=== PATIENT | female | born 1950 | race Caucasian/White ===

== ENCOUNTER 2018-10-28 10:49 | Day surgery (SDC) | payer BC ==
--- NOTE | 2018-10-28 07:06 | History and Physical - [place] ---
CHIEF COMPLAINT/HISTORY OF CHIEF COMPLAINT: This patient presents with a history of an intractable lumbar radiculopathy. Due to the failure of therapy a spinal cord stimulator trial was conducted on 09/29/18. Due to the failure of all therapies and the success of the trial, the patient presents today for implantation of a permanent system. PAST MEDICAL HISTORY: Noncontributory. PAST SURGICAL HISTORY: Shoulder surgery, knee surgery, hysterectomy and tendon repair. MEDICATIONS ON ADMISSION: List to be provided. ALLERGIES: CODEINE, MORPHINE, AND DEMEROL. FAMILY/PSYCHOSOCIAL HISTORY: Social history - Caffeine. Family history - Diabetes, hypertension, and cancer. SYSTEMS REVIEW: The patient seems appropriate in no acute distress. The remainder of the systems review is positive for glasses, headaches, and degenerative arthritis. PHYSICAL EXAMINATION: Height is 4'8", weight is 200 pounds. No vital signs. HEENT: Within normal limits. LUNGS: Clear. HEART: Rapid and regular. ABDOMEN: Nontender. MUSCULOSKELETAL: Examination of the musculoskeletal system shows diffuse tenderness at the lumbar spine. Range of motion does produce pain into both legs across both the front and back surface. There appears to be some mild motor and sensory abnormalities into both legs. Ambulation - No assistive device utilized. NEUROLOGIC: Cranial nerves are intact. IMPRESSION: LUMBAR RADICULOPATHY, ICD-10 CODE M54.16 AND M54.17. PLAN: The patient is here for implantation of a permanent spinal cord stimulator after the successful trial and the failure of all other therapies. The procedure will be considered outpatient, although an overnight stay will be evaluated. The potential risks, side effects and complications have all been reviewed and discussed. JOB NUMBER: [id number] [facility]
[~2018-10-28 10:49] MED LIST: ACETAMINOPHEN 1,000 MG/100 ML BTL IVPB ONE; CEFAZOLIN 1G VIAL IVP ONE; CEFAZOLIN 2 Gram 2 GM/50 ML BAG IVPB ONE; FAMOTIDINE 20MG TABLET PO ONE; METOCLOPRAMIDE 10 MG TABLET PO ONE; SCOPOLAMINE 1 PATCH TDSY TD ONE; WATER STERILE FOR INJECTION 20 ML VIAL MC ONE
[2018-10-28] MEDS ORDERED: PROPOFOL 10 MG/ML VIAL IV ONE (10:50)
[2018-10-28] MEDS ORDERED: MIDAZOLAM HCL 2MG/2ML VIAL IV ONE (10:50)
[2018-10-28] MEDS ORDERED: FENTANYL PF 100MCG/2ML VIAL IV ONE (10:50)
[2018-10-28] MEDS ORDERED: LIDOCAINE 2% MDV (20MG/ML) 20ML VIAL IV ONE (10:50)
[2018-10-28] MEDS ORDERED: RINGERS SOLUTION,LACTATED 1,000 ML IV ONE ×2 (14:32→15:23)
[2018-10-28] MEDS ORDERED: BUPIVACAINE 0.5% W/EPI MPF 30 ML VIAL SQ ONE (14:42)
[2018-10-28] MEDS ORDERED: LIDOCAINE 1% W/EPI 1:100,000 MDV 20 ML VIAL SQ ONE (14:42)
[2018-10-28] MEDS ORDERED: CEFAZOLIN 0.5 G in 0.9 % SODIUM CHLORIDE 1000ML 500 ML IVP ONE (14:44)
[2018-10-28] MEDS ORDERED: HYDROCODONE/APAP 7.5/325MG TABLET PO ONE (15:56)
--- NOTE | 2018-10-30 07:10 | Operative Note ---
DATE OF SURGERY: 10/28/2018 PREOPERATIVE DIAGNOSIS: Lumbar radiculopathy, ICD10 code M54.16 and M54.17, with thoracolumbar rotoscoliosis, ICD10 code M41.25. OPERATION: 1. Fluoroscopic-guided epidural access left T11-12, placement of spinal cord stimulator lead 1 [employer] Infinion 16, 6 electrodes positioned left T7. 2. Fluoroscopic-guided epidural access left T12-L1, placement of spinal cord stimulator lead 2 [employer] Infinion 16, 6 electrodes positioned right T7. 3. Complex programming of lead 1 over 20 minutes followed by complex programming of lead 2 over 20 minutes. 4. Incision and subcutaneous dissection and anchoring of lead 1 and lead 2 to skin using a [employer] locking anchor, nonabsorbable suture. 5. Incision and subcutaneous dissection and creation of subcutaneous pouch at left posterior gluteal margin for placement of generator identified as [employer] programmable rechargeable WaveWriter generator. 6. Tunneling between lead pouch, placement of 2 leads into generator pouch, each lead interfaced with the generator. 7. Placement of leads into the pouch, closure of both incisions using Stratafix suture 2-0 fascia, 3-0 skin, and Dermabond closure. A complex recovery room programming internal generator home use 2 stimulators 20 minutes. SURGEON: Sheldon Saini DO ANESTHESIA: Local sedation. ANESTHESIA PROVIDER: Tonia Verduzco INDICATION: This patient presents with a history of intractable lumbar radiculopathy with a moderately severe rotoscoliosis. Due to the failure of all therapies, a stimulator trial was conducted with 75% to 85% pain control. Due to the failure of therapy and the success of the trial, she presents today for implantation of permanent system. PROCEDURE: Intravenous line, vital sign monitoring, IV sedation. Prepped and draped with sterile technique. Patient positioned prone. Sterile prep, sterile technique. The epidural interspace left of midline at 11-12 and 12-1 marked, infiltrated with local, then 2 separate curved access Epimed needles with loss of resistance into the space. Atraumatic. No blood, no CSF. At 11-12, spinal cord stimulator lead 1, a [employer] Infinion 16, 6 electrodes positioned left of midline with upper electrode at T7. With the access at 12-1, spinal cord stimulator lead 2, [employer] 16, 6 electrodes was positioned right of the midline at T7. Complex programming of lead 1 over 20 minutes followed by complex programming of lead 2 over 20 minutes resulting in complete pattern stimulation across the back and into the legs. Patient indicating we had all the areas of the pain. She was given the option to implant, continue to program, or remove. She opted to implant. The question was repeated with the same response. The skin above and below both needles was infiltrated. She was re-sedated. The skin below both needles infiltrated with local. Incision was made and subcutaneous dissection was conducted to supraspinous fascia. Each of the leads was then anchored to the supraspinous fascia with a [employer] locking anchor and nonabsorbable suture. At the left posterior gluteal margin, which was a site picked by the patient for the generator, skin infiltrated, incision made, and subcutaneous dissection was conducted to form a pouch of suitable size and depth for the generator. A tunneling tool was used to carry the leads into the generator pouch, and then each lead was interfaced to the generator. Antibiotic irrigation and Bovie for hemostasis. The pouches were then closed using [employer] suture 2-0 fascia, 3-0 skin. Dermabond closure was used to approximate the edges of each of the incisional sites. She was transported to recovery room stable. No side effects from the procedure or sedation. When fully awake and alert, complex programming in the recovery room performed reestablishing stimulation and pain control to all the appropriate areas. She was instructed on the use of the system, provided information, error messaging, and then by her request prepared for discharge. DISCHARGE INSTRUCTIONS: 1. The sites will remain clean and dry. No showering or bathing in any way that would disrupt dressings. If it happens, contact the clinic. 2. Standard medications resumed including the antibiotic Levaquin. She will take 500 mg once a day for 3 days. 3. The office will contact the patient at home in the next 24-48 hours to set up a time in 7-10 days to evaluate the sites. Until then, she is to keep her activities controlled, limit bend, lift, push, pull. All other instructions were provided with numbers to contact if problems given. She will be seen in the office. MIGUELITO
--- NOTE | 2018-10-30 23:24 | RADIOLOGY REPORT ---
EXAM: SPINE, 1 VIEW HISTORY: STATUS POST SPINAL STIMULATOR IMPLANT. TECHNIQUE: A single frontal view of the thoracolumbar spine. COMPARISON: None. FINDINGS: Paired stimulator leads are seen in the projection of the T7 through T9 vertebrae. A generator device is partially seen overlying the left lower abdomen. For additional procedural details, please refer to the operative report. Right upper quadrant abdominal surgical clips are seen. IMPRESSION: ABOVE. JOB NUMBER: [id number] [facility]
== END 2018-10-28 16:08 | disposition home or self-care (01) ==
LOC: SUR 10:49
PROVIDERS: ATTEND Pain Medicine Interventional Pain Medicine
DX: M54.16 Radiculopathy, lumbar region (principal); M54.17 Radiculopathy, lumbosacral region; I49.9 Cardiac arrhythmia, unspecified
CPT/HCPCS: 63650; 63685; 01936; 95972; 72020; J0690; C1820; C1883; J7030; J7120